=== PATIENT | male | born 1985 | race Caucasian/White ===

== ENCOUNTER 2016-12-24 20:50 | Emergency (ER) | payer OTHER ==
[~2016-12-24] VITALS: Ht 165.1 cm; Wt 97.5 kg
[2016-12-24 20:52] VITALS: BP 130/82; PULSE 74; TEMP 36.7; O2SAT 97; Ht 165.1 cm; Wt 97.5 kg
[2016-12-24] MEDS ORDERED: LIDOCAINE/EPINEPH/TETRACAINE 1 EA SYR EXT STA (21:51)
--- NOTE | 2016-12-24 21:56 | EMERGENCY ROOM VISIT NOTE ---
ED Visit Note First contact with patient: 21:36 CHIEF COMPLAINT: Left foot laceration HISTORY OF PRESENT ILLNESS: This 31-year-old male patient presents to the emergency department ambulatory after cutting the left foot on a police of glass at home. The bleeding has stopped. Denies weakness or numbness of the foot and toes. The patient denies any pain. The patient denies any other injuries. The patient's Tetanus shot is up to date. REVIEW OF SYSTEMS: A 6 system review of systems was completed with positives and pertinent negatives listed in the HPI. ALLERGIES: No known allergies MEDICATIONS: Patient denies PMH: Patient denies SOCIAL HISTORY: The patient is . He is a [employer] student. PHYSICAL EXAM: Vital Signs: Reviewed Nurse's notes, vital signs stable. GENERAL : This is a 31-year-old male, in no acute distress, well-developed, well- nourished. SKIN: There is a 3 cm long flap-like laceration on the plantar aspect of the left foot. The edges gape apart with traction. There is no foreign material in the wound and it looks clean. There is minimal bleeding. No deep structures such as tendons, bones, or nerves are seen in the base of the wound. Normal strength and movement of the foot and toes. Capillary refill less than 2 seconds. Normal sensation to light and sharp touch. EMERGENCY DEPARTMENT COURSE: I examined the patient. I recommended an x-ray to evaluate for foreign body but the patient refuses. I offered LET gel but the patient declined and requested injectable lidocaine. Using sterile technique the wound was cleaned with Betadine. The area was sterilely draped. 6 ml of 1% buffered lidocaine was used to anesthetize the laceration on the bottom of the foot. Once the patient was numb, the wound was copiously irrigated under pressure with sterile saline. The wound was explored and was as described above. The laceration was repaired using 5 simple interrupted 4-0 nylon sutures with the wound edges being well approximated. The patient tolerated the procedure well. The bleeding stopped. The area was cleaned with sterile saline and dressed with bacitracin ointment and bandage. The patient was discharged home in good condition. I did not feel any glass in the wound or visualize any glass on my visual inspection. The patient refused an x-ray. The wound was cleaned and repaired as above. Given that this is the bottom of the foot, he will be placed on Keflex for 5 days. The laceration was primarily through the callus but it was fairly deep. It may dry and fall off. DIAGNOSIS: Foot laceration DISCHARGE INSTRUCTIONS & TREATMENT: Keep wound clean and dry. Do not allow any crusting or dried blood to accumulate on sutures. If this occurs, use a 1:1 solution of hydrogen peroxide/water on a Q-tip to clean the wound. Use an antibiotic ointment for 3-4 days, then let wound dry. Suture removal in 10-12 days. Return sooner for any signs of infection (increasing redness, swelling, drainage). Ice and elevate for swelling and pain. Ibuprofen 600 mg every 6 hrs for pain. Keep covered when in sun until sutures removed then SPF 50 or higher for one year. Vitamin E oil if desired two weeks after suture removal for reduction of scar. Keflex every 8 hours for 5 days to help prevent infection Problem List Medical Problems: (1) Heart palpitations Status: Resolved (2) Sore throat Status: Resolved Current/Historical Medications Scheduled Cephalexin Monohydrate (Keflex), 500 MG PO TID Allergies Coded Allergies: No Known Allergies (Unverified , 12/24/16) Vital Signs Date Time Temp Pulse Resp B/P Pulse Ox O2 Delivery O2 Flow Rate FiO2 12/24/16 20:52 36.7 74 18 130/82 97 Room Air Departure Information Impression Primary Impression: Laceration Dispostion Home / Self-Care Condition GOOD Prescriptions Cephalexin Monohydrate (Keflex) 500 Mg Cap 500 MG PO TID for 5 Days, #15 CAP Prov: Olga Chirinos PA-C 12/24/16 Referrals [facility] (PCP) Patient Instructions ED Laceration All, [facility] Additional Instructions Keep wound clean and dry. Do not allow any crusting or dried blood to accumulate on sutures. If this occurs, use a 1:1 solution of hydrogen peroxide/ water on a Q-tip to clean the wound. Use an antibiotic ointment for 3-4 days, then let wound dry. Suture removal in 10-12 days. Return sooner for any signs of infection (increasing redness, swelling, drainage). Ice and elevate for swelling and pain. Ibuprofen 600 mg every 6 hrs for pain. Keep covered when in sun until sutures removed then SPF 50 or higher for one year. Vitamin E oil if desired two weeks after suture removal for reduction of scar. Keflex every 8 hours for 5 days to help prevent infection
[2016-12-24] MEDS ORDERED: XYLOCAINE 1%/SOD BICARB 20 ML VIAL INFIL ONE (22:00)
[2016-12-24] MEDS ORDERED: CEPH500C PO (22:15)
== END 2016-12-24 22:22 | disposition home or self-care (01) ==
LOC: C.EDB 20:50 → C.EDD 22:22
DX: S91.312A Laceration without foreign body, left foot, initial encounter (principal); W25.XXXA Contact with sharp glass, initial encounter

== ENCOUNTER 2017-06-15 20:02 | Emergency (ER) | payer OTHER ==
[~2017-06-15] VITALS: Ht 170.2 cm; Wt 94.7 kg
[2017-06-15 20:11] VITALS: TEMP 37.1; Ht 170.2 cm; Wt 94.7 kg
[2017-06-15 20:50] VITALS: O2SAT 99
[2017-06-15 21:09] LABS: BASO % 0.5 %; BASO ABS # 0.04 K/uL (0-0.2); COMPLETE YES; EOS % 1.4 %; HEMATOCRIT 41.7 % (42-52); IG% 0.5 %; LYMPH % 31.2 %; LYMPH ABS # 2.67 K/uL (1.2-3.4); MEAN CELL VOLUME 78.4 fL (80-100); MEAN CORPUSCULAR HGB CONC 35.7 g/dl (32-36); MONO % 5.6 %; NEUT % 60.8 %; PLATELET COUNT 341 K/uL (130-400); RED BLOOD COUNT 5.32 M/uL (4.7-6.1); WHITE BLOOD COUNT 8.56 K/uL (4.8-10.8)
--- NOTE | 2017-06-15 21:25 | DIAGNOSTIC IMAGING REPORT ---
CHEST ONE VIEW PORTABLE CLINICAL HISTORY: CHEST PAIN COMPARISON STUDY: Chest radiograph June 20, 2016. FINDINGS: Lung volumes are normal. No pneumothorax or pleural effusion is present. Mild right infrahilar opacity is present. Cardiomediastinal silhouette is normal. Pulmonary vascularity is normal. IMPRESSION: Hazy right infrahilar opacity. This likely reflects normal vessels however pneumonia could appear similar. Electronically signed by: Dex Johnson M.D. 06/15/2017 9:23 PM Dictated Date/Time: 06/15/2017 9:22 PM
[2017-06-15 21:35] LABS: ALKALINE PHOSPHATASE 53 U/L (45-117); ALT/SGPT 31 U/L (12-78); BLOOD UREA NITROGEN 12 mg/dl (7-18); CALCIUM 9.5 mg/dl (8.5-10.1); CARBON DIOXIDE 25 mmol/L (21-32); CHLORIDE 104 mmol/L (98-107); CKMB/CK RATIO 0.4 (0-3.0); CREATININE 0.85 mg/dl (0.60-1.40); GLUCOSE 98 mg/dl (70-99)
[2017-06-15 21:36] LABS: POTASSIUM 3.9 mmol/L (3.5-5.1); SODIUM 137 mmol/L (136-145)
[2017-06-15 21:44] LABS: AST/SGOT 18 U/L (15-37)
[2017-06-15 21:54] LABS: PROTHROMBIN TIME (PATIENT) 10.7 SECONDS (9.0-12.0)
[2017-06-15 22:16] VITALS: BP 144/86; PULSE 71; O2SAT 98
--- NOTE | 2017-06-15 23:23 | EMERGENCY ROOM VISIT NOTE ---
History First contact with patient: 20:16 Chief Complaint: CHEST PAIN Stated Complaint: PAIN IN HEART History of Present Illness The patient is a 32 year old male who presents to the Emergency Room with complaints of chest pain radiating into the left upper arm and shoulder region. The patient reports that he has had palpitations as well. The patient has a long history of palpitations. He has seen his family doctor at home as well as a editor book locally at the [facility]. He reports having an echocardiogram approximately one year ago that was normal. He did not require a stress test. He reports that his pain started 3-4 days ago, and also reported palpitations. He became concerned because of pain radiating into the left shoulder and arm. He denies any pain radiating into the neck, and denies any worsening pain with neck range of motion. He also denies any chest tightness, shortness of breath, nausea or diaphoresis. His pain is better with activity, worse when stationary. He reports that the pain goes away when walking. He denies any recent upper respiratory infection, and denies any pain radiating into the abdomen. He currently rates his discomfort a 2 out of 10. Review of Systems HEENT: Denies dizziness, visual problems, hearing loss, tinnitus. Denies difficulty swallowing or oral lesions. PULMONARY: Denies cough, shortness of breath, sputum production or hemoptysis. CARDIOVASCULAR: Denies dyspnea on exertion, orthopnea or peripheral edema. Otherwise see history of present illness GASTROINTESTINAL: Denies diarrhea, constipation, nausea, vomiting, or abdominal pain. GENITOURINARY: Denies dysuria, frequency, urgency or nocturia. NEUROLOGIC: Denies history of epilepsy, CVA, TIA or chronic headaches. MUSCULOSKELETAL: Denies history of joint tenderness/swelling. SKIN: Denies rashes or lesions. PSYCHIATRIC: Denies history of depression or mental illness. ENDOCRINE: Denies history of diabetes or thyroid disorders. Past Medical/Surgical History Medical Problems: (1) Heart palpitations (2) Sore throat Family History Patient reports no known family medical history. Social History Smoking Status: Never Smoker Alcohol Use: none Drug Use: none Marital Status: Housing Status: lives with family Occupation Status: student Current/Historical Medications No Active Prescriptions or Reported Meds Physical Exam Vital Signs Date Time Temp Pulse Resp B/P (MAP) Pulse Ox O2 Delivery O2 Flow Rate FiO2 06/15/17 22:16 71 144/86 98 Room Air 06/15/17 21:01 79 06/15/17 20:51 99 Room Air 06/15/17 20:50 99 Room Air 06/15/17 20:11 37.1 83 20 114/76 97 Room Air Physical Exam CONSTITUTIONAL: Healthy and well nourished. Alert and oriented X 3 with positive affect. She does not appear in any acute distress. HEENT: Normocephalic, atraumatic. Pupils equal, round and reactive. NECK: Full active range of motion without discomfort. No worsening pain with right lateral or left lateral gaze. RESPIRATORY: Clear to auscultation bilaterally with no wheezing, crackles, rhonchi or stridor. Deep breathing does not worsen his discomfort. CARDIOVASCULAR: Regular rate and rhythm with no murmurs, rubs or gallops. GASTROINTESTINAL: Bowel sounds present in all quadrants. Soft and nontender to palpation. MUSCULOSKELETAL: Full range of motion of all joints without discomfort. Examination shows no significant discomfort with range of motion of the left shoulder. He has mild tenderness to palpation over the anterior shoulder region however. No ecchymosis or soft tissue edema noted. INTEGUMENTARY: No rash or other significant dermatologic conditions noted. HEMATOLOGIC: No ecchymosis or petechiae. NEUROLOGIC: No focal neurologic deficits noted. Medical Decision & Procedures ER Provider Diagnostic Interpretation: My interpretation of an ECG shows a normal sinus rhythm of [address] elevation or other conduction abnormalities. Portable chest x-ray does not show any pneumothorax, consolidations or widened mediastinum. Radiologist report is as follows: CHEST ONE VIEW PORTABLE CLINICAL HISTORY: CHEST PAIN COMPARISON STUDY: Chest radiograph June 20, 2016. FINDINGS: Lung volumes are normal. No pneumothorax or pleural effusion is present. Mild right infrahilar opacity is present. Cardiomediastinal silhouette is normal. Pulmonary vascularity is normal. IMPRESSION: Hazy right infrahilar opacity. This likely reflects normal vessels however pneumonia could appear similar. Laboratory Results 06/15/17 20:25 Red Blood Count 5.32, Mean Corpuscular Volume 78.4, Mean Corpuscular Hemoglobin 28.0, Mean Corpuscular Hemoglobin Concent 35.7, Mean Platelet Volume 10.0, Neutrophils (%) (Auto) 60.8, Lymphocytes (%) (Auto) 31.2, Monocytes (%) (Auto) 5.6, Eosinophils (%) (Auto) 1.4, Basophils (%) (Auto) 0.5, Neutrophils # (Auto) 5.21, Lymphocytes # (Auto) 2.67, Monocytes # (Auto) 0.48, Eosinophils # (Auto) 0.12, Basophils # (Auto) 0.04 06/15/17 20:25 Test 06/15/17 20:25 White Blood Count 8.56 K/uL (4.8-10.8) Red Blood Count 5.32 M/uL (4.7-6.1) Hemoglobin 14.9 g/dL (14.0-18.0) Hematocrit 41.7 % (42-52) Mean Corpuscular Volume 78.4 fL (80-100) Mean Corpuscular Hemoglobin 28.0 pg (25-34) Mean Corpuscular Hemoglobin Concent 35.7 g/dl (32-36) Platelet Count 341 K/uL (130-400) Mean Platelet Volume 10.0 fL (7.4-10.4) Neutrophils (%) (Auto) 60.8 % Lymphocytes (%) (Auto) 31.2 % Monocytes (%) (Auto) 5.6 % Eosinophils (%) (Auto) 1.4 % Basophils (%) (Auto) 0.5 % Neutrophils # (Auto) 5.21 K/uL (1.4-6.5) Lymphocytes # (Auto) 2.67 K/uL (1.2-3.4) Monocytes # (Auto) 0.48 K/uL (0.11-0.59) Eosinophils # (Auto) 0.12 K/uL (0-0.5) Basophils # (Auto) 0.04 K/uL (0-0.2) RDW Standard Deviation 37.0 fL (36.4-46.3) RDW Coefficient of Variation 13.0 % (11.5-14.5) Immature Granulocyte % (Auto) 0.5 % Immature Granulocyte # (Auto) 0.04 K/uL (0.00-0.02) Prothrombin Time 10.7 SECONDS (9.0-12.0) Prothromb Time International Ratio 1.0 (0.9-1.1) Activated Partial Thromboplast Time 26.1 SECONDS (21.0-31.0) Partial Thromboplastin Ratio 1.0 D-Dimer < 190 ug/L FEU (0-500) Anion Gap 9.0 mmol/L (3-11) Est Creatinine Clear Calc Drug Dose 139.4 ml/min Estimated GFR () 135.5 Estimated GFR (Non- 116.9 BUN/Creatinine Ratio 14.0 (10-20) Calcium Level 9.5 mg/dl (8.5-10.1) Total Bilirubin 0.5 mg/dl (0.2-1) Direct Bilirubin 0.1 mg/dl (0-0.2) Aspartate Amino Transf (AST/SGOT) 18 U/L (15-37) Alanine Aminotransferase (ALT/SGPT) 31 U/L (12-78) Alkaline Phosphatase 53 U/L (45-117) Total Creatine Kinase 234 U/L (39-308) Creatine Kinase MB 1.0 ng/ml (0.5-3.6) Creatine Kinase MB Ratio 0.4 (0-3.0) Troponin I < 0.015 ng/ml (0-0.045) Total Protein 8.0 gm/dl (6.4-8.2) Albumin 4.3 gm/dl (3.4-5.0) Lipase 135 U/L (73-393) Thyroid Stimulating Hormone (TSH) 1.090 uIu/ml (0.300-4.500) The above labs were reviewed. Patient has no leukocytosis. Electrolytes are normal. TSH, troponin and d-dimer are normal. LFTs and lipase are normal. ED Course Patient history and physical exam were performed. Nurse's notes were reviewed. Vital signs were reviewed and were normal. IV access was established, and labs were drawn. ECG and portable chest x-ray were grossly normal. The radiologist does make mention of hazy right infrahilar opacity, possible vessel summation. The patient denies any recent upper respiratory infection, therefore I suspect no acute consolidations. Remaining labs were also normal, including d-dimer and troponin. The patient had no further discomfort on reevaluation. The patient was encouraged to follow-up with his local editor book within the next few days for reevaluation. He was encouraged to refrain from strenuous activities for now. He was encouraged to take a baby aspirin daily. Return to the emergency department for any progressively worsening symptoms. The patient was happy with plan of care, and voiced understanding of all discharge instructions. Medical Decision She presents with complaint of chest pain radiating to his left shoulder and arm. He was concerned about possible cardial infarction. He does report a history of palpitations, and has had local cardiology workup including echocardiogram. At this point, his workup is not suggestive of myocardial infarction or pulmonary embolus. I do not suspect pneumonia, and the patient has no pneumothorax on chest x-ray. The patient is afebrile and has no leukocytosis to suggest infectious etiology. Labwork also is not suggestive of pancreatitis, cholecystitis or hepatitis. The case was also discussed with Dr. Campos, ED attending physician, who agrees with workup and plan of care. Medication Reconcilliation Current Medication List: was personally reviewed by me Blood Pressure Screening Patient's blood pressure: Normal blood pressure Impression Primary Impression: Left sided chest pain Additional Impression: Left shoulder pain Departure Information Dispostion Home / Self-Care Condition GOOD Prescriptions No Active Prescriptions or Reported Meds Forms HOME CARE DOCUMENTATION FORM, IMPORTANT VISIT INFORMATION Patient Instructions My [facility] [employer] Additional Instructions Avoid any significant physical activities until reevaluated by your editor book 's. Suggest taking aspirin 81 mg daily. Return to the emergency department for any significantly worsening chest pain, shortness of breath, nausea or fever. Problem Qualifiers Additional Impression: Left shoulder pain Chronicity: acute Qualified Codes: M25.512 - Pain in left shoulder
== END 2017-06-15 22:41 | disposition home or self-care (01) ==
LOC: C.EDB 20:03
DX: R07.9 Chest pain, unspecified (principal); M25.512 Pain in left shoulder

== ENCOUNTER → 2017-11-10 | Outpatient (CLI) | payer OTHER ==
[2017-11-10 13:19] LABS: BASO % 0.5 %; BASO ABS # 0.03 K/uL (0-0.2); EOS % 1.5 %; HEMATOCRIT 40.2 % (42-52); HEMOGLOBIN 13.8 g/dL (14.0-18.0); IG# 0.02 K/uL (0.00-0.02); LYMPH % 23.1 %; MEAN CELL VOLUME 79.9 fL (80-100); MEAN CORPUSCULAR HEMOGLOBIN 27.4 pg (25-34); MEAN CORPUSCULAR HGB CONC 34.3 g/dl (32-36); MEAN PLATELET VOLUME 10.2 fL (7.4-10.4); MONO % 8.2 %; MONO ABS # 0.53 K/uL (0.11-0.59); NEUT % 66.4 %; PLATELET COUNT 272 K/uL (130-400); WHITE BLOOD COUNT 6.48 K/uL (4.8-10.8)
[2017-11-10 13:55] LABS: ALBUMIN 4.1 gm/dl (3.4-5.0); ALT/SGPT 75 U/L (12-78); BLOOD UREA NITROGEN 9 mg/dl (7-18); CALCIUM 9.3 mg/dl (8.5-10.1); CARBON DIOXIDE 27 mmol/L (21-32); CREATININE 0.78 mg/dl (0.60-1.40); GLUCOSE 89 mg/dl (70-99); LIPASE 115 U/L (73-393); POTASSIUM 3.8 mmol/L (3.5-5.1); SODIUM 138 mmol/L (136-145)
[2017-11-10 14:05] LABS: ALKALINE PHOSPHATASE 47 U/L (45-117); AST/SGOT 144 U/L (15-37); CHOLESTEROL 107 mg/dl (0-200); LDL CHOLESTEROL CALCULATED 53 mg/dl; TOTAL PROTEIN 8.1 gm/dl (6.4-8.2)
[2017-11-10 14:18] LABS: HEMOGLOBIN A1C 5.1 % (4.5-5.6)
[2017-11-10 14:49] LABS: HEP C IGG 13 YRS+OLDER_RFLX NEG (NEG)
[2017-11-13 21:56] LABS: HEPATITIS A IGM TC 51813E NON-REACTIVE (NON-REACTIVE); HEPATITIS B CORE IGM TC51854R NON-REACTIVE (NON-REACTIVE)
== END | disposition home or self-care (01) ==
LOC: C.LAB1850 11:42
PROVIDERS: ATTEND Nurse Practitioner Family
DX: Z13.1 Encounter for screening for diabetes mellitus (principal); R10.9 Unspecified abdominal pain

== ENCOUNTER → 2017-11-14 | Outpatient (CLI) | payer OTHER ==
--- NOTE | 2017-11-14 11:00 | DIAGNOSTIC IMAGING REPORT ---
ABDOMINAL ULTRASOUND, RIGHT UPPER QUADRANT HISTORY: Acute right upper quadrant abdominal pain. Abnormal liver function tests.. COMPARISON: Right upper quadrant ultrasound September 12, [address] of the abdomen and pelvis October 14, 2015. FINDINGS: Hepatic echogenicity is increased consistent with fatty infiltration. The pancreas is obscured by overlying bowel gas. There are no gallstones. There is no biliary ductal dilatation. No right hydronephrosis is present. IMPRESSION: 1. No gallstones or biliary ductal dilatation. 2. Fatty infiltration of the liver. 3. Obscured pancreas. Electronically signed by: Dex Johnson M.D. 11/14/2017 10:59 AM Dictated Date/Time: 11/14/2017 10:57 AM
== END | disposition home or self-care (01) ==
LOC: C.ULTR 09:12
PROVIDERS: ATTEND Nurse Practitioner Family
DX: K76.0 Fatty (change of) liver, not elsewhere classified (principal)